=== PATIENT | male | born 1945 | race African-American/Black ===

== ENCOUNTER 2016-07-18 18:02 | Inpatient (IN) | payer OTHER ==
[~2016-07-18] VITALS: Ht 165.1 cm; Wt 59.8 kg
[~2016-07-18 18:02] MED LIST: ADVAIR HFA120 INHALA IH; AMLODIPINE BESYL5 MG PO; ASPIR-LOW81 MG PO; ASPIR-TRIN325 M1 PO; ASPIRIN EC325 MG PO; ASPIRIN325 MG PO; ATIVAN2 MG PO; ATORVASTATIN CA40 MG PO; ATORVASTATIN CA80 MG PO; CILOSTAZOL100 MG PO; CILOSTAZOL50 MG PO; CLONIDINE HCL0.1 MG PO; ENDOCET 5-3251 EACH PO; FERROUS SULFAT325 MG PO; FLAGYL500 MG PO; FOLIC ACID1 MG PO; LIDOCAINE700 MG TD; LISINOPRIL20 MG PO; LOPRESSOR25 MG PO; LOVENOX40 MG/0.4 SC; NICODERM CQ1 EACH TD; NICOTINE PATCH1 EAC2 TD; SENNA PLUS TAB1 EACH PO; SPIRIVA RESPIMAT4 GM IH; THERAGRAN1 TABLET PO; THIAMINE HCL100 MG PO; TYLENOL REGULA325 MG PO; VITAMIN D31000 UNI2 PO
[2016-07-18 18:56] LABS: HEMATOCRIT 38.4 % (38.0-50.0); MCH 24.7 PG (29.0-34.0); MCV 79.7 FL (86-99); MEAN PLAT.VOLUME 9.8 uM^3 (9.0-12.4); PLATELET COUNT 330 K/uL (156-360); RBC DIS.WIDTH-CV 22.3 % (11.8-14.6); RBC DIS.WIDTH-SD 63.1 % (39-53); RED BLOOD COUNT 4.82 M/uL (4.00-5.50); WHITE BLOOD COUNT 11.4 K/uL (4.1-10.2)
[2016-07-18 19:08] LABS: CHLORIDE 107 mEq/L (99-109); POTASSIUM 4.5 mEq/L (3.7-5.4); SODIUM 140 mEq/L (136-147)
[2016-07-18 19:10] LABS: GLUCOSE 72 mg/dL (70-99)
[2016-07-18 19:12] LABS: ANION GAP 11 MEQ/L (2-14); TOTAL BILIRUBIN 0.6 mg/dL (0.0-1.0)
[2016-07-18 19:14] LABS: ALKALINE PHOSPHATASE 78 IU/L (3-129); GFR ESTIMATE (CALCULATED) > 59 mL/min/
[2016-07-18 19:15] LABS: UREA NITROGEN (BUN) 17 mg/dL (9-23)
[2016-07-19 00:02] LABS: DIRECT BILIRUBIN 0.3 mg/dL (0.0-0.3); LIPASE 23 U/L (1.0-51.0)
[2016-07-19 00:23] LABS: TROP-I INTERPRETATION NEGATIVE; TROPONIN-I 0.07 ng/mL (0.0-0.30)
[2016-07-19 01:56] LABS: ADD MIUA? YES; BILIRUBIN NEGATIVE; BLOOD NEGATIVE; COLOR AMBER ((YELLOW)); GLUCOSE (STRIP) NEGATIVE; KETONES NEGATIVE; LEUKOCYTES TRACE; NITRITE NEGATIVE; PROTEIN (STRIP) 30; SPECIFIC GRAVITY 1.028 (1.000-1.030)
[2016-07-19 02:01] LABS: BACTERIA RARE /HPF; EPITHELIAL CELLS 1+ /HPF; HYALINE CASTS 0-5 /LPF; MUCUS 1+ /LPF; RED BLOOD CELLS 0-5 /HPF (0-5); UCUL ADDED? NO
[2016-07-19 03:00] VITALS: BP 219/100
[2016-07-19 03:19] LABS: MAGNESIUM 1.9 mg/dL (1.3-2.7)
[2016-07-19 04:00] VITALS: BP 178/80
[2016-07-19 07:02] LABS: HEMATOCRIT 35.9 % (38.0-50.0); MCH 24.9 PG (29.0-34.0); MCHC 31.2 G/DL (30.0-36.0); MEAN PLAT.VOLUME 9.5 uM^3 (9.0-12.4); PLATELET COUNT 271 K/uL (156-360); RBC DIS.WIDTH-CV 22.4 % (11.8-14.6); RBC DIS.WIDTH-SD 63.2 % (39-53); RED BLOOD COUNT 4.49 M/uL (4.00-5.50)
[2016-07-19 07:05] LABS: WHITE BLOOD COUNT 5.9 K/uL (4.1-10.2)
[2016-07-19 07:22] LABS: Estimated Average Glucose 120 mg/dL (70-123); HEMOGLOBIN A1c (GLYCOHEMOGLOB) 5.8 % HGB (Below 5.7)
[2016-07-19 07:35] VITALS: BP 194/91
[2016-07-19 08:50] LABS: POINT-OF-CARE METER ID UU13113700
[2016-07-19] MEDS ORDERED: ZESTRIL20 MG PO (09:06)
[2016-07-19] MEDS ORDERED: FERROUS SULFAT325 MG PO (09:07)
[2016-07-19] MEDS ORDERED: LIPITOR80 MG PO (09:07)
[2016-07-19 11:20] VITALS: BP 188/88
[2016-07-19 12:31] LABS: POINT-OF-CARE METER ID UU13113700
[2016-07-19 17:08] VITALS: BP 176/74
[2016-07-19 17:50] LABS: POINT-OF-CARE METER ID UU13113831
[2016-07-19 20:00] VITALS: BP 116/60
[2016-07-19 22:05] LABS: POINT-OF-CARE METER ID UU14162513
[2016-07-20 01:14] VITALS: BP 127/62
[2016-07-20 05:03] VITALS: BP 126/62
[2016-07-20 07:20] LABS: EOSINOPHIL (%) 0 % (0-5); HEMATOCRIT 33.7 % (38.0-50.0); IMMATURE GRANULOCYTE (%) 0.5 % (0.0-0.7); IMMATURE GRANULOCYTE COUNT 0.1 K/uL; INSTRUMENT ABS NEUTROPHIL CT 9.5 K/uL; LYMPHOCYTE COUNT 1.8 K/uL (1.0-2.8); MCH 24.9 PG (29.0-34.0); MCHC 31.8 G/DL (30.0-36.0); MCV 78.4 FL (86-99); MEAN PLAT.VOLUME 10.1 uM^3 (9.0-12.4); MONOCYTE COUNT 0.5 K/uL (0-0.8); NEUTROPHIL COUNT 9.5 K/uL (1.8-6.4); PLATELET COUNT 286 K/uL (156-360); RBC DIS.WIDTH-CV 22.4 % (11.8-14.6); RBC DIS.WIDTH-SD 62.4 % (39-53); WHITE BLOOD COUNT 11.9 K/uL (4.1-10.2)
[2016-07-20 07:30] LABS: ANION GAP 8 MEQ/L (2-14); CHLORIDE 105 MEQ/L (99-109); GFR ESTIMATE (CALCULATED) > 59 mL/min/; MAGNESIUM 1.7 mg/dl (1.3-2.7); SAMPLE HEMOLYSIS CHECK 0; SAMPLE ICTERIC CHECK 0; SAMPLE LIPEMIA CHECK 0; SODIUM 134 MEQ/L (136-147); UREA NITROGEN (BUN) 16 mg/dL (9-23)
[2016-07-20 07:31] LABS: GLUCOSE 132 mg/dL (70-99)
[2016-07-20 07:53] LABS: INFLUENZA A VIRAL ANTIGEN NEGATIVE; INFLUENZA B VIRAL ANTIGEN NEGATIVE
[2016-07-20 08:17] LABS: POINT-OF-CARE METER ID UU13113700
[2016-07-20 11:34] VITALS: BP 159/78
[2016-07-20 13:57] LABS: POINT-OF-CARE METER ID UU14162513
[2016-07-20 16:00] VITALS: BP 157/84
[2016-07-20 16:30] VITALS: BP 138/76
[2016-07-20 19:19] VITALS: BP 171/80
[2016-07-20 21:41] LABS: POINT-OF-CARE METER ID UU14188577
[2016-07-21] VITALS (7 sets, daily range): BP systolic 137–177; BP diastolic 75–89
[2016-07-21 06:45] LABS: EOSINOPHIL (%) 0 % (0-5); IMMATURE GRANULOCYTE (%) 0.6 % (0.0-0.7); IMMATURE GRANULOCYTE COUNT 0.1 K/uL; INSTRUMENT ABS NEUTROPHIL CT 8.7 K/uL; LYMPHOCYTE COUNT 1.9 K/uL (1.0-2.8); MCH 25.2 PG (29.0-34.0); MCHC 32.3 G/DL (30.0-36.0); MCV 78.1 FL (86-99); MEAN PLAT.VOLUME 10.1 uM^3 (9.0-12.4); MONOCYTE (%) 4.7 % (3-12); MONOCYTE COUNT 0.5 K/uL (0-0.8); NEUTROPHIL (%) 77.4 % (45-76); NEUTROPHIL COUNT 8.7 K/uL (1.8-6.4); PLATELET COUNT 286 K/uL (156-360); RBC DIS.WIDTH-CV 22.6 % (11.8-14.6); RBC DIS.WIDTH-SD 62.7 % (39-53); RED BLOOD COUNT 4.48 M/uL (4.00-5.50); WHITE BLOOD COUNT 11.2 K/uL (4.1-10.2)
[2016-07-21 07:05] LABS: ANION GAP 8 MEQ/L (2-14); CHLORIDE 104 MEQ/L (99-109); GFR ESTIMATE (CALCULATED) > 59 mL/min/; GLUCOSE 133 mg/dL (70-99); MAGNESIUM 1.7 mg/dl (1.3-2.7); POTASSIUM 4.1 MEQ/L (3.7-5.4); SAMPLE HEMOLYSIS CHECK 0; SAMPLE ICTERIC CHECK 0; SAMPLE LIPEMIA CHECK 0; SODIUM 136 MEQ/L (136-147); UREA NITROGEN (BUN) 17 mg/dL (9-23)
[2016-07-21 12:06] LABS: POINT-OF-CARE METER ID UU14188577
[2016-07-21 17:01] LABS: POINT-OF-CARE METER ID UU14149397
[2016-07-22 04:00] VITALS: BP 170/79
[2016-07-22 07:24] VITALS: BP 162/78
[2016-07-22] MEDS ORDERED: ASPIRIN81 M2 PO (09:13)
[2016-07-22] MEDS ORDERED: PROCARDIA20 MG PO (09:13)
[2016-07-22] MEDS ORDERED: CLONIDINE1 EACH TD (09:13)
[2016-07-22] MEDS ORDERED: PREDNISONE10 MG PO (09:13)
[2016-07-22 10:19] VITALS: BP 136/74
[2016-07-22 11:14] VITALS: BP 137/71
[2016-07-22 11:47] LABS: POINT-OF-CARE METER ID UU14188577
== END 2016-07-22 12:43 | DRG 191 ==
LOC: EME 18:02 → EDOF 07-19 01:38 → 5WEST 07-19 01:38 → 3EAST 07-19 09:37 → 5WEST 07-19 09:37 → 3EAST 07-20 17:10
PROVIDERS: Emergency Medicine; Hospitalist; Internal Medicine; Physician Assistant Medical
DX: J44.1 Chronic obstructive pulmonary disease with (acute) exacerbation (principal); N30.00 Acute cystitis without hematuria; E11.9 Type 2 diabetes mellitus without complications; D72.828 Other elevated white blood cell count; F10.239 Alcohol dependence with withdrawal, unspecified; N20.0 Calculus of kidney; M16.12 Unilateral primary osteoarthritis, left hip; I16.0 Hypertensive urgency; R32 Unspecified urinary incontinence; G89.29 Other chronic pain; E78.5 Hyperlipidemia, unspecified; Z86.73 Personal history of transient ischemic attack (TIA), and cerebral infarction without residual deficits; F17.210 Nicotine dependence, cigarettes, uncomplicated; I25.10 Atherosclerotic heart disease of native coronary artery without angina pectoris; G40.909 Epilepsy, unspecified, not intractable, without status epilepticus; Z91.19 Patient's noncompliance with other medical treatment and regimen; F41.9 Anxiety disorder, unspecified; I25.2 Old myocardial infarction; Z66 Do not resuscitate; F12.90 Cannabis use, unspecified, uncomplicated
CPT/HCPCS: 71020; 73522; 74176; 80048; 80053; 81003; 82248; 82948; 83036; 83690; 83735; 83880; 84484; 85025; 85027; 87502; 93005; 94640; 94640 76; 94799; 99202; 99281; 99285; G8978 GP CH; G8979 GP CH; G8980 GP CH; G8987 GO CH; G8988 GO CH; G8989 GO CH; J0360; J1650; J2920; J2930; J3411; J7030; J7512

== ENCOUNTER 2016-08-08 03:46 | Emergency (ER) | payer OTHER ==
[~2016-08-08] VITALS: Ht 165.1 cm; Wt 62.0 kg
[~2016-08-08 03:46] MED LIST changes: +ASPIRIN81 M2 PO; +CLONIDINE1 EACH TD; +LIPITOR80 MG PO; +PREDNISONE10 MG PO; +PROCARDIA20 MG PO; +ZESTRIL20 MG PO
[2016-08-08 04:30] LABS: HEMATOCRIT 32.2 % (38.0-50.0); MCH 26.1 PG (29.0-34.0); MCV 81.5 FL (86-99); PLATELET COUNT 252 K/uL (156-360); RBC DIS.WIDTH-CV 23.4 % (11.8-14.6); RBC DIS.WIDTH-SD 69.3 % (39-53); RED BLOOD COUNT 3.95 M/uL (4.00-5.50); WHITE BLOOD COUNT 7.7 K/uL (4.1-10.2)
[2016-08-08 04:38] LABS: CHLORIDE 108 mEq/L (99-109); POTASSIUM 3.8 mEq/L (3.7-5.4); SODIUM 139 mEq/L (136-147)
[2016-08-08 04:40] LABS: GLUCOSE 92 mg/dL (70-99)
[2016-08-08 04:41] LABS: ANION GAP 10 MEQ/L (2-14)
[2016-08-08 04:43] LABS: SERUM ETHYL ALCOHOL 66 mg/dL
[2016-08-08 04:44] LABS: GFR ESTIMATE (CALCULATED) > 59 mL/min/
[2016-08-08 04:45] LABS: UREA NITROGEN (BUN) 17 mg/dL (9-23)
[2016-08-08 04:46] LABS: D-DIMER ELISA 0.56 mg/L FEU (< 0.57); PROTHROMBIN TIME 10.5 (9.2-11.2); PTT 25.2 (25-32)
[2016-08-08 04:49] LABS: TROP-I INTERPRETATION NEGATIVE; TROPONIN-I 0.03 ng/mL (0.0-0.30)
[2016-08-08 06:31] LABS: TROP-I INTERPRETATION NEGATIVE; TROPONIN-I 0.03 ng/mL (0.0-0.30)
[2016-08-08 06:54] VITALS: BP 159/75
== END 2016-08-08 06:45 | disposition home or self-care (01) ==
LOC: EME → EDBD 03:46 → EME 03:46
PROVIDERS: Emergency Medicine
DX: R07.89 Other chest pain (principal); I10 Essential (primary) hypertension; D64.9 Anemia, unspecified; J45.909 Unspecified asthma, uncomplicated; E11.9 Type 2 diabetes mellitus without complications; J44.9 Chronic obstructive pulmonary disease, unspecified; E78.5 Hyperlipidemia, unspecified; I25.2 Old myocardial infarction; K21.9 Gastro-esophageal reflux disease without esophagitis; Z86.73 Personal history of transient ischemic attack (TIA), and cerebral infarction without residual deficits; F17.200 Nicotine dependence, unspecified, uncomplicated
CPT/HCPCS: 71020; 80048; 84484; 85027; 85379; 85610; 85730; 93005; 99281; 99284; G0480

== ENCOUNTER 2016-09-07 15:49 | Emergency (ER) | payer OTHER ==
[~2016-09-07] VITALS: Ht 165.1 cm; Wt 58.0 kg
[2016-09-07 18:10] LABS: HEMATOCRIT 35.8 % (38.0-50.0); MCHC 31.6 G/DL (30.0-36.0); MCV 82.5 FL (86-99); MEAN PLAT.VOLUME 9.7 uM^3 (9.0-12.4); PLATELET COUNT 376 K/uL (156-360); RBC DIS.WIDTH-CV 21.8 % (11.8-14.6); RBC DIS.WIDTH-SD 65.2 % (39-53); RED BLOOD COUNT 4.34 M/uL (4.00-5.50); WHITE BLOOD COUNT 12.6 K/uL (4.1-10.2)
[2016-09-07 18:11] LABS: BASOPHIL COUNT 0.1 K/uL (0-0.1); EOSINOPHIL (%) 1.2 % (0-5); EOSINOPHIL COUNT 0.2 K/uL (0-0.3); IMMATURE GRANULOCYTE (%) 0.4 % (0.0-0.7); IMMATURE GRANULOCYTE COUNT 0.1 K/uL; INSTRUMENT ABS NEUTROPHIL CT 7.8 K/uL; LYMPHOCYTE COUNT 3.4 K/uL (1.0-2.8); MONOCYTE (%) 8.7 % (3-12); MONOCYTE COUNT 1.1 K/uL (0-0.8); NEUTROPHIL COUNT 7.8 K/uL (1.8-6.4)
[2016-09-07 19:03] LABS: CHLORIDE 108 mEq/L (99-109); POTASSIUM 3.9 mEq/L (3.7-5.4); SODIUM 141 mEq/L (136-147)
[2016-09-07 19:05] LABS: GLUCOSE 99 mg/dL (70-99)
[2016-09-07 19:07] LABS: ANION GAP 12 MEQ/L (2-14)
[2016-09-07 19:09] LABS: GFR ESTIMATE (CALCULATED) > 59 mL/min/
[2016-09-07 19:10] LABS: UREA NITROGEN (BUN) 20 mg/dL (9-23)
[2016-09-07 20:29] LABS: ADD MIUA? YES; BILIRUBIN NEGATIVE; BLOOD NEGATIVE; COLOR YELLOW ((YELLOW)); GLUCOSE (STRIP) NEGATIVE; KETONES NEGATIVE; LEUKOCYTES TRACE; NITRITE NEGATIVE; PROTEIN (STRIP) 30; SPECIFIC GRAVITY 1.024 (1.000-1.030)
[2016-09-07 20:34] LABS: BACTERIA RARE /HPF; EPITHELIAL CELLS 1+ /HPF; MUCUS TRACE /LPF; RED BLOOD CELLS 0-5 /HPF (0-5); WHITE BLOOD CELLS 0-5 /HPF (0-5)
[2016-09-07 21:09] LABS: ADD MEDTOX COMMENT Y; AMPHETAMINE NEGATIVE (500 ng/mL); BARBITURATES NEGATIVE (200 ng/mL); BENZODIAZEPINES NEGATIVE (150 ng/mL); COCAINE NEGATIVE (150 ng/mL); INTERNAL CONTROLS VALID? YES; METHADONE NEGATIVE (200 ng/mL); METHAMPHETAMINE NEGATIVE (500 ng/mL); OPIATES (MORPHINE) NEGATIVE (100 ng/mL); OXYCODONE NEGATIVE (100 ng/mL); PHENCYCLIDINE NEGATIVE (25 ng/mL); PROPOXYPHENE NEGATIVE (300 ng/mL); THC CANNABINOIDS PRESUMPTIVE POSITIVE (50 ng/mL); TRICYCLIC ANTIDEPRESSANTS NEGATIVE (300 ng/mL)
[2016-09-07 23:00] VITALS: BP 154/73
== END 2016-09-07 23:17 | disposition home or self-care (01) ==
LOC: EME 15:49
PROVIDERS: Emergency Medicine
DX: T14.8 Other injury of unspecified body region (principal); M54.9 Dorsalgia, unspecified; M25.552 Pain in left hip; M25.562 Pain in left knee; V03.90XA Pedestrian on foot injured in collision with car, pick-up truck or van, unspecified whether traffic or nontraffic accident, initial encounter; I10 Essential (primary) hypertension; E78.5 Hyperlipidemia, unspecified; F17.200 Nicotine dependence, unspecified, uncomplicated
CPT/HCPCS: 70450; 71020; 72125; 72132; 73564; 74177; 80048; 81003; 84999; 85025; 99281; 99285; J3010; J7030

== ENCOUNTER 2016-09-21 14:08 | Emergency (ER) | payer OTHER | END 2016-09-21 14:30 | disposition left against medical advice (07) | LOC: EME 14:08 | DX: F10.129 Alcohol abuse with intoxication, unspecified (principal) | CPT/HCPCS: 99281; 99282 ==

== ENCOUNTER 2017-01-23 17:30 | Emergency (ER) | payer OTHER ==
[~2017-01-23] VITALS: Ht 165.1 cm; Wt 64.5 kg
[2017-01-23] MEDS ORDERED: NIFEDIPINE20 MG PO (20:10)
[2017-01-23] MEDS ORDERED: LISINOPRIL20 MG PO (20:10)
[2017-01-23 20:22] VITALS: BP 203/96
== END 2017-01-23 20:25 | disposition home or self-care (01) ==
LOC: EME 17:30
DX: M54.5 Low back pain (principal); I10 Essential (primary) hypertension; M25.551 Pain in right hip; M25.552 Pain in left hip; E11.9 Type 2 diabetes mellitus without complications; J44.9 Chronic obstructive pulmonary disease, unspecified; E78.5 Hyperlipidemia, unspecified; K21.9 Gastro-esophageal reflux disease without esophagitis; F41.9 Anxiety disorder, unspecified; I25.2 Old myocardial infarction; Z86.73 Personal history of transient ischemic attack (TIA), and cerebral infarction without residual deficits; F17.200 Nicotine dependence, unspecified, uncomplicated; F10.10 Alcohol abuse, uncomplicated; F12.10 Cannabis abuse, uncomplicated; Z88.0 Allergy status to penicillin
CPT/HCPCS: 72100; 99281; 99284

== ENCOUNTER 2017-02-12 09:45 | Emergency (ER) | payer OTHER ==
[~2017-02-12] VITALS: Ht 165.1 cm; Wt 60.7 kg
[~2017-02-12 09:45] MED LIST changes: +NIFEDIPINE20 MG PO
[2017-02-12 10:25] LABS: MCH 24.7 PG (29.0-34.0); MCHC 32.3 G/DL (30.0-36.0); MCV 76.5 FL (86-99); MEAN PLAT.VOLUME 9.6 uM^3 (9.0-12.4); PLATELET COUNT 318 K/uL (156-360); RBC DIS.WIDTH-CV 19.7 % (11.8-14.6); RBC DIS.WIDTH-SD 53.7 % (39-53); RED BLOOD COUNT 4.05 M/uL (4.00-5.50); WHITE BLOOD COUNT 8.2 K/uL (4.1-10.2)
[2017-02-12 10:39] LABS: CHLORIDE 111 mEq/L (99-109); POTASSIUM 4.3 mEq/L (3.7-5.4); SODIUM 138 mEq/L (136-147)
[2017-02-12 10:41] LABS: GLUCOSE 77 mg/dL (70-99)
[2017-02-12 10:42] LABS: ANION GAP 7 MEQ/L (2-14)
[2017-02-12 10:45] LABS: GFR ESTIMATE (CALCULATED) > 59 mL/min/; UREA NITROGEN (BUN) 14 mg/dL (9-23)
[2017-02-12 10:46] LABS: TROP-I INTERPRETATION NEGATIVE; TROPONIN-I 0.02 ng/mL (0.0-0.30)
[2017-02-12 13:17] LABS: TROP-I INTERPRETATION NEGATIVE; TROPONIN-I 0.02 ng/mL (0.0-0.30)
[2017-02-12 16:35] VITALS: BP 171/94
[2017-02-15] MEDS ORDERED: KEFLEX500 MG PO (13:03)
== END 2017-02-12 16:36 | disposition home or self-care (01) ==
LOC: EME 09:45
PROVIDERS: Emergency Medicine
DX: R07.89 Other chest pain (principal); I10 Essential (primary) hypertension; E11.9 Type 2 diabetes mellitus without complications; E78.5 Hyperlipidemia, unspecified; F17.200 Nicotine dependence, unspecified, uncomplicated; I25.2 Old myocardial infarction; Z71.6 Tobacco abuse counseling; Z86.73 Personal history of transient ischemic attack (TIA), and cerebral infarction without residual deficits; F12.90 Cannabis use, unspecified, uncomplicated; Z59.0 Homelessness; J44.9 Chronic obstructive pulmonary disease, unspecified; K21.9 Gastro-esophageal reflux disease without esophagitis; Z88.0 Allergy status to penicillin; F41.9 Anxiety disorder, unspecified
CPT/HCPCS: 71010; 80048; 84484; 85027; 93005; 99281; 99283; J7030

== ENCOUNTER 2017-07-03 15:11 | Observation (INO) | payer OTHER ==
[~2017-07-03] VITALS: Ht 165.1 cm; Wt 65.7 kg
[~2017-07-03 15:11] MED LIST changes: +KEFLEX500 MG PO
[2017-07-03 18:17] LABS: HEMOGLOBIN 10.5 G/DL (12.5-16.6); MCH 22.9 PG (29.0-34.0); MCHC 30.9 G/DL (30.0-36.0); MCV 74.1 FL (86-99); PLATELET COUNT 330 K/uL (156-360); RBC DIS.WIDTH-CV 20.9 % (11.8-14.6); RBC DIS.WIDTH-SD 55.1 % (39-53); RED BLOOD COUNT 4.59 M/uL (4.00-5.50)
[2017-07-03 18:28] LABS: APPEARANCE SL.HAZY ((CLEAR)); BILIRUBIN NEGATIVE; BLOOD NEGATIVE; COLOR YELLOW ((YELLOW)); GLUCOSE (STRIP) NEGATIVE; KETONES NEGATIVE; LEUKOCYTES NEGATIVE; NITRITE NEGATIVE; PROTEIN (STRIP) 30; SPECIFIC GRAVITY 1.028 (1.000-1.030)
[2017-07-03 18:32] LABS: CHLORIDE 107 mEq/L (99-109); POTASSIUM 3.9 mEq/L (3.7-5.4); SODIUM 137 mEq/L (136-147)
[2017-07-03 18:33] LABS: GLUCOSE 121 mg/dL (70-99)
[2017-07-03 18:34] LABS: BACTERIA NONE SEEN /HPF; EPITHELIAL CELLS RARE /HPF; MUCUS NONE SEEN /LPF; RED BLOOD CELLS 0-5 /HPF (0-5); WHITE BLOOD CELLS 0-5 /HPF (0-5)
[2017-07-03 18:37] LABS: CREATININE 1.1 mg/dL (0.6-1.3); GFR ESTIMATE (CALCULATED) > 59 mL/min/ (58.99-99999); TROP-I INTERPRETATION NEGATIVE; TROPONIN-I 0.05 ng/mL (0.0-0.30)
[2017-07-03 18:38] LABS: UREA NITROGEN (BUN) 17 mg/dL (9-23)
[2017-07-03 21:40] LABS: SERUM ETHYL ALCOHOL < 10 mg/dL
[2017-07-03 22:33] VITALS: BP 149/79
[2017-07-04] VITALS (8 sets, daily range): BP systolic 120–175; BP diastolic 68–90
[2017-07-04 05:55] LABS: BASOPHIL (%) 1.4 % (0-1); BASOPHIL COUNT 0.1 K/uL (0-0.1); EOSINOPHIL (%) 10.3 % (0-5); HEMATOCRIT 32.6 % (38.0-50.0); HEMOGLOBIN 9.5 G/DL (12.5-16.6); IMMATURE GRANULOCYTE (%) 0.2 % (0.0-0.7); LYMPHOCYTE (%) 58.4 % (15-42); LYMPHOCYTE COUNT 5.4 K/uL (1.0-2.8); MCH 21.6 PG (29.0-34.0); MCHC 29.1 G/DL (30.0-36.0); MCV 74.3 FL (86-99); MONOCYTE (%) 7.7 % (3-12); MONOCYTE COUNT 0.7 K/uL (0-0.8); PLATELET COUNT 300 K/uL (156-360); RBC DIS.WIDTH-CV 20.5 % (11.8-14.6); RED BLOOD COUNT 4.39 M/uL (4.00-5.50); WHITE BLOOD COUNT 9.3 K/uL (4.1-10.2)
[2017-07-04 06:12] LABS: TROP-I INTERPRETATION NEGATIVE; TROPONIN-I 0.05 ng/mL (0.0-0.30)
[2017-07-04 06:14] LABS: ALBUMIN 3.2 G/DL (3.2-4.8); ALKALINE PHOSPHATASE 73 IU/L (3-129); ALT (GPT) 32 IU/L (3-49); AST (GOT) 31 IU/L (2-34); CHLORIDE 108 MEQ/L (99-109); CREATININE 0.9 MG/DL (0.6-1.3); DIRECT BILIRUBIN 0.1 mg/dL (0.0-0.3); GFR ESTIMATE (CALCULATED) > 59 mL/min/ (58.99-99999); GLUCOSE 107 mg/dL (70-99); POTASSIUM 3.7 MEQ/L (3.7-5.4); SODIUM 137 MEQ/L (136-147); TOTAL BILIRUBIN 0.4 MG/DL (0.0-1.0); TOTAL PROTEIN 6.6 G/DL (6.4-8.3); UREA NITROGEN (BUN) 17 mg/dL (9-23)
[2017-07-04] MEDS ORDERED: CATAPRES0.1 MG PO (13:36)
[2017-07-04] MEDS ORDERED: LIPITOR10 MG PO (13:37)
[2017-07-05 04:15] VITALS: BP 190/86
[2017-07-05 04:23] VITALS: BP 170/74
[2017-07-05 08:33] VITALS: BP 148/88
[2017-07-05] MEDS ORDERED: LOSARTAN POTASS25 MG PO (09:46)
[2017-07-05] MEDS ORDERED: ASPIR-LOW81 MG PO (09:46)
[2017-07-05] MEDS ORDERED: BUTALB-APAP-CA1 EACH PO (09:46)
[2017-07-05 11:04] VITALS: BP 170/80
== END 2017-07-05 16:12 | disposition home or self-care (01) ==
LOC: EME 15:11 → EDOF 20:34 → 5WEST 20:34 → ENRESERV 20:37 → 5WEST 22:10
PROVIDERS: Hospitalist; Physician Assistant
DX: I95.1 Orthostatic hypotension (principal); I10 Essential (primary) hypertension; I25.10 Atherosclerotic heart disease of native coronary artery without angina pectoris; Z86.73 Personal history of transient ischemic attack (TIA), and cerebral infarction without residual deficits; F17.210 Nicotine dependence, cigarettes, uncomplicated; Z82.49 Family history of ischemic heart disease and other diseases of the circulatory system; E11.51 Type 2 diabetes mellitus with diabetic peripheral angiopathy without gangrene; F10.20 Alcohol dependence, uncomplicated; Z91.19 Patient's noncompliance with other medical treatment and regimen; J44.9 Chronic obstructive pulmonary disease, unspecified; E78.5 Hyperlipidemia, unspecified; R56.9 Unspecified convulsions; G93.89 Other specified disorders of brain; D64.9 Anemia, unspecified; Z88.0 Allergy status to penicillin; Z79.82 Long term (current) use of aspirin
CPT/HCPCS: 70450; 71045; 80048; 80076; 81003; 84484; 85025; 85027; 93005; 93306; 93880; 94640; 94640 76; 99202; 99281; 99285; G0378; G0480; J0360; J1650; J7030

== ENCOUNTER 2017-11-30 16:12 | Emergency (ER) | payer OTHER ==
[~2017-11-30] VITALS: Ht 170.2 cm; Wt 65.3 kg
[~2017-11-30 16:12] MED LIST changes: +BUTALB-APAP-CA1 EACH PO; +CATAPRES0.1 MG PO; +LIPITOR10 MG PO; +LOSARTAN POTASS25 MG PO
[2017-11-30 16:59] LABS: CHLORIDE 109 mEq/L (99-109); POTASSIUM 4.3 mEq/L (3.7-5.4); SODIUM 139 mEq/L (136-147)
[2017-11-30 17:00] LABS: MAGNESIUM 2.2 mg/dL (1.3-2.7)
[2017-11-30 17:01] LABS: GLUCOSE 97 mg/dL (70-99)
[2017-11-30 17:05] LABS: CREATININE 1.2 mg/dL (0.6-1.3); GFR ESTIMATE (CALCULATED) > 59 mL/min/ (58.99-99999)
[2017-11-30 17:06] LABS: BASOPHIL (%) 1.1 % (0-1); BASOPHIL COUNT 0.1 K/uL (0-0.1); EOSINOPHIL (%) 7.9 % (0-5); EOSINOPHIL COUNT 0.7 K/uL (0-0.3); HEMATOCRIT 29.4 % (38.0-50.0); HEMOGLOBIN 8.8 G/DL (12.5-16.6); IMMATURE GRANULOCYTE (%) 0.2 % (0.0-0.7); LYMPHOCYTE (%) 45.6 % (15-42); LYMPHOCYTE COUNT 3.8 K/uL (1.0-2.8); MCH 22.4 PG (29.0-34.0); MCHC 29.9 G/DL (30.0-36.0); MCV 74.8 FL (86-99); MONOCYTE (%) 8.4 % (3-12); MONOCYTE COUNT 0.7 K/uL (0-0.8); NEUTROPHIL (%) 36.8 % (45-76); PLATELET COUNT 306 K/uL (156-360); RBC DIS.WIDTH-CV 20.1 % (11.8-14.6); RBC DIS.WIDTH-SD 54.7 % (39-53); RED BLOOD COUNT 3.93 M/uL (4.00-5.50); UREA NITROGEN (BUN) 22 mg/dL (9-23); WHITE BLOOD COUNT 8.3 K/uL (4.1-10.2)
[2017-11-30 17:08] LABS: LIPASE 26 U/L (1.0-51.0)
[2017-11-30 17:14] LABS: TROP-I INTERPRETATION NEGATIVE; TROPONIN-I 0.02 ng/mL (0.0-0.30)
[2017-11-30 19:00] VITALS: BP 165/99
== END 2017-11-30 19:00 | disposition home or self-care (01) ==
LOC: EME 16:12
PROVIDERS: Emergency Medicine
DX: R07.9 Chest pain, unspecified (principal); D64.9 Anemia, unspecified; I10 Essential (primary) hypertension; E78.5 Hyperlipidemia, unspecified; E11.9 Type 2 diabetes mellitus without complications; J43.9 Emphysema, unspecified; F41.9 Anxiety disorder, unspecified; F17.200 Nicotine dependence, unspecified, uncomplicated; I25.2 Old myocardial infarction; F12.90 Cannabis use, unspecified, uncomplicated; Z91.81 History of falling; J45.909 Unspecified asthma, uncomplicated; K21.9 Gastro-esophageal reflux disease without esophagitis; Z86.73 Personal history of transient ischemic attack (TIA), and cerebral infarction without residual deficits; Z88.0 Allergy status to penicillin
CPT/HCPCS: 71045; 80048; 83690; 83735; 84484; 85025; 93005; 99281; 99285